=== PATIENT | male | born 1965 | race African-American/Black ===

== ENCOUNTER 2023-01-04 18:56 | Inpatient (IN) | payer OTHER ==
[2023-01-04 21:29] VITALS: BMI 30.9
[2023-01-04] MEDS ORDERED: guaiFENesin 200 MG/10 ML 10 ML UNIT-DOSE CUPS PO PRN (22:20)
[2023-01-04] MEDS ORDERED: MAG HYDROX/AL HYDROX/SIMETH 30 ML UNIT-DOSE CUP PO PRN (22:20)
[2023-01-04] MEDS ORDERED: IBUPROFEN 600 MG TABLET (FP) PO PRN (22:20)
[2023-01-04] MEDS ORDERED: LOPERAMIDE HCL 2 MG CAPSULE PO PRN (22:20)
[2023-01-04] MEDS ORDERED: NALOXONE HCL 0.4 MG/ML VIAL IM PRN (22:20)
[2023-01-04] MEDS ORDERED: P-EPHED 60MG/TRIPROLIDI 2.5MG TABLET PO PRN (22:20)
[2023-01-04] MEDS ORDERED: BENZOCAINE/MENTHOL (CHLORASEPTIC ) LOZENGE MM PRN (22:20)
[2023-01-04] MEDS ORDERED: ACETAMINOPHEN 325 MG TABLET (FP) PO PRN ×2 (22:20)
[2023-01-04] MEDS ORDERED: IBUPROFEN 400 MG TABLET (FP) PO PRN (22:20)
[2023-01-04] MEDS ORDERED: POLYETHYLENE GLYCOL (HEALTHYLAX) 3350 17 GM PACKET PO PRN (22:20)
[2023-01-04] MEDS ORDERED: NALOXONE HCL (KLOXXADO) 8 MG SPRAY NS PRN (22:20)
[2023-01-04] MEDS ORDERED: DICYCLOMINE HCL 10 MG CAPSULE PO PRN (22:20)
[2023-01-04] MEDS ORDERED: ONDANSETRON *ODT* 4 MG TABLET SL PRN (22:20)
[2023-01-04] MEDS ORDERED: MAGNESIUM HYDROX 2400MG/30ML ORAL SUSPENSION 30 ML CUP PO PRN (22:20)
[2023-01-04] MEDS ORDERED: BISMUTH SUBSALICYLATE 524 MG/30 ML PO PRN (22:20)
[2023-01-05] MEDS ORDERED: methaDONE HCL 10 MG TABLET (FOR DETOX USE ONLY) PO ONE (09:20)
[2023-01-05] MEDS: PRENATAL VITAMINS W/ FOLIC ACID TABLET (FP) PO SCH (10:23)
[2023-01-05 10:48] LABS: HEMATOCRIT 30.6 % (35.4-49); HEMOGLOBIN 10.1 GM/dL (11.7-16.9); MCH 26.4 pg (25.7-33.7); PLATELET COUNT 299 10^3/uL (134-434); RBC 3.82 M/mm3 (4.00-5.60); RDW 16.3 % (11.9-15.9); WHITE BLOOD COUNT 5.3 K/mm3 (4.0-10.0)
[2023-01-05 12:40] LABS: BLOOD UREA NITROGEN 22.6 mg/dL (7-18)
[2023-01-05 12:41] LABS: CALCIUM 8.4 mg/dL (8.5-10.1)
[2023-01-05 12:44] LABS: CREATININE 1.1 mg/dL (0.55-1.3)
[2023-01-05 12:45] LABS: BILIRUBIN,TOTAL 0.4 mg/dL (0.2-1); TOT PROT 5.9 g/dl (6.4-8.2)
[2023-01-05] MEDS: MELATONIN 5 MG TABLETS PO PRN (22:22)
[2023-01-05] MEDS: THIAMINE HCL 100 MG TABLET (FP) PO SCH (22:22)
[2023-01-05] MEDS: METHOCARBAMOL 500 MG TABLET PO PRN (22:24)
[2023-01-05] MEDS: hydrOXYzine PAMOATE 25 MG CAPSULE (FP) PO PRN (22:24)
[2023-01-05] MEDS: cloNIDine HCL 0.1 MG TABLET PO PRN (22:28)
[2023-01-06] MEDS: PRENATAL VITAMINS W/ FOLIC ACID TABLET (FP) PO SCH (10:08)
[2023-01-06] MEDS: METHOCARBAMOL 500 MG TABLET PO PRN (10:08)
[2023-01-06] MEDS: cloNIDine HCL 0.1 MG TABLET PO PRN ×2 (18:23→22:25)
[2023-01-06] MEDS: hydrOXYzine PAMOATE 25 MG CAPSULE (FP) PO PRN (18:24)
[2023-01-06] MEDS: MELATONIN 5 MG TABLETS PO PRN (22:24)
[2023-01-06] MEDS: THIAMINE HCL 100 MG TABLET (FP) PO SCH (22:24)
[2023-01-07] MEDS ORDERED: methaDONE HCL 10 MG TABLET (FOR DETOX USE ONLY) PO ONE ×2 (08:38→10:00)
[2023-01-07] MEDS: PRENATAL VITAMINS W/ FOLIC ACID TABLET (FP) PO SCH (10:31)
[2023-01-07] MEDS: THIAMINE HCL 100 MG TABLET (FP) PO SCH (23:04)
[2023-01-08] MEDS: METHOCARBAMOL 500 MG TABLET PO PRN ×2 (09:06→17:30)
[2023-01-08] MEDS: PRENATAL VITAMINS W/ FOLIC ACID TABLET (FP) PO SCH (09:06)
[2023-01-08] MEDS: MELATONIN 5 MG TABLETS PO PRN (22:44)
[2023-01-08] MEDS: THIAMINE HCL 100 MG TABLET (FP) PO SCH (22:44)
[2023-01-09] MEDS: PRENATAL VITAMINS W/ FOLIC ACID TABLET (FP) PO SCH (09:23)
[2023-01-09] MEDS: hydrOXYzine PAMOATE 25 MG CAPSULE (FP) PO PRN ×2 (09:25→18:38)
[2023-01-09] MEDS ORDERED: methaDONE HCL 10 MG TABLET (FOR DETOX USE ONLY) PO ONE (10:00)
[2023-01-09] MEDS: METHOCARBAMOL 500 MG TABLET PO PRN (14:53)
[2023-01-09] MEDS: THIAMINE HCL 100 MG TABLET (FP) PO SCH (22:33)
[2023-01-10] MEDS: PRENATAL VITAMINS W/ FOLIC ACID TABLET (FP) PO SCH (09:08)
[2023-01-10 09:47] VITALS: BP 155/88; PULSE 64; RESP 18; TEMP 97.5
== END 2023-01-10 09:52 | disposition home or self-care (01) | DRG 773 ==
LOC: YASAS 18:56 → Y6N 23:39 → UNDOADMIN 23:39
PROVIDERS: ADMIT Allergy & Immunology; ATTEND Family Medicine
PROC: HZ2ZZZZ Detoxification Services for Substance Abuse Treatment (ICD-10-PCS; principal; 2023-01-04)
DX: F11.23 Opioid dependence with withdrawal (principal); F14.20 Cocaine dependence, uncomplicated; L91.9 Hypertrophic disorder of the skin, unspecified; L85.0 Acquired ichthyosis; R00.1 Bradycardia, unspecified
CPT/HCPCS: 36415; 80053; 85027; 86780; C9803-CS; U0003; U0005